=== PATIENT | male | born 1955 | race Caucasian/White ===

== ENCOUNTER 2017-01-25 21:19 | Emergency (ER) | payer OTHER ==
[~2017-01-25] VITALS: Ht 170.2 cm; Wt 84.0 kg
[2017-01-25] MEDS ORDERED: TELM20TA PO (21:37)
[2017-01-25 22:18] LABS: BLOOD UREA NITROGEN 22 mg/dL (7-18)
[2017-01-25] MEDS ORDERED: LORazepam 1MG TABLET PO ONE (22:30)
[2017-01-25] MEDS ORDERED: LORazepam 1MG TABLET ONE (22:31)
[2017-01-25 23:15] VITALS: BP 127/84
== END 2017-01-25 23:17 | disposition home or self-care (01) ==
LOC: ED 23:11
DX: R25.2 Cramp and spasm (principal)
CPT/HCPCS: 36415; 80048; 82040; 99284